=== PATIENT | female | born 1960 | race African-American/Black ===

== ENCOUNTER 2019-11-13 08:15 | Emergency (ER) | payer OTHER ==
[2019-11-13 08:20] VITALS: BP 141/70; PULSE 82; TEMP 98.1; BMI 27.2
[2019-11-13] MEDS ORDERED: DIPHTH,PERTUSS(ACELL),TET 0.5 ML DISP.SYRIN IM ONE ×2 (08:45→08:47)
--- NOTE | 2019-11-13 08:51 | PDOC ---
History of Present Illness - General Chief Complaint: Laceration Stated Complaint: RT HAND LACERATION (FINGER) Time Seen by Provider: 11/13/19 08:33 History Source: Patient Exam Limitations: No Limitations - History of Present Illness Initial Comments: 11/13/19 08:46 Patient is a 59-year-old female with a history of stage IV colon CA who presents to the ED with a laceration to her right thumb. She states that she was reaching into the drill for the junction maker and sliced her finger. She was looking to pill potatoes and reached in and accidentally cut herself. She denie s any fevers or chills. She is unsure of her last tetanus booster. She bandaged her finger several times but it continued to bleed so she came to the ED for evaluation. She states the injury happened before 7 AM. She denies any allergies to medications. Past History - Medical History Allergies/Adverse Reactions: Allergies Allergy/AdvReac Type Severity Reaction Status Date / Time No Known Allergies Allergy Verified 11/13/19 08:17 Home Medications: Ambulatory Orders Escitalopram Oxalate [Lexapro -] 10 mg PO DAILY 12/14/12 Lamotrigine [Lamictal] 150 mg PO TID #21 tablet 05/08/13 Pramipexole Di-HCl [Mirapex] 0.25 mg PO DAILY 02/05/14 Protriptyline HCl 5 mg PO DAILY 02/05/14 Escitalopram Oxalate [Lexapro -] 20 mg PO DAILY #7 tablet 08/24/14 Lamotrigine [Lamictal] 150 mg PO DAILY #7 tablet 08/24/14 Cancer: Yes (COLON STAGE 4) COPD: No Hypercholesterolemia: Yes Psychiatric Problems: Yes (DEPRESSION) - Surgical History Abdominal Surgery: Yes GI Surgery: Yes (TUMOR REMOVAL) - Immunization History Immunization Up to Date: Yes - Psycho-Social/Smoking History Smoking Status: Yes Smoking History: Never smoked Number of Cigarettes Smoked Daily: 0 If you are a former smoker, when did you quit?: 10 years ago - Substance Abuse Hx (Audit-C & DAST Scrn) How often the patient has a drink containing alcohol: Never Score: In Men: 4 or > Positive; In Women: 3 or > Positive: 0 Screen Result (Pos requires Nsg. Audit-10AR): Negative In the last yr the pt used illegal drug/Rx for NonMed reason: No Score: Yes response is considered Positive: 0 Screen Result (Positive result requires Nsg. DAST-10): Negative Review of Systems - Review of Systems Comments:: 11/13/19 08:48 - Review of Systems Able to Perform ROS?: Yes Constitutional: No: Fever, Chills, Loss of Appetite, Night Sweats, Weakness Respiratory: No: Cough, Shortness of Breath, Wheezing, Sputum Production Cardiac (ROS): No: Chest Pain, Chest Tightness, Palpitations, Irregular Heart Beat, Edema ABD/GI: No: Nausea, Vomiting, Abdominal Pain, Diarrhea Musculoskeletal: No: Muscle Pain, Back Pain, Joint Pain, Muscle Weakness, Neck Pain Integumentary: No: Lesions, Rash; positive: Right thumb laceration Neurological: No: Headache, Numbness, Tingling, Weakness, Speech Difficulties *Physical Exam - Vital Signs Last Vital Signs Temp Pulse Resp BP Pulse Ox 98.1 F 82 20 141/70 100 11/13/19 08:17 11/13/19 08:17 11/13/19 08:17 11/13/19 08:17 11/13/19 08:17 - Physical Exam 11/13/19 08:49 - Physical Exam General Appearance: Nourished, Appropriately Dressed, No Distress Neck: Supple, No Lymphadenopathy (R), No Lymphadenopathy (L), No Rigidity, No Decreased range of motion Respiratory/Chest: Lungs Clear, Normal Breath Sounds. No Respiratory Distress, No Accessory Muscle Use Cardiovascular: Regular Rhythm, Regular Rate, S1, S2 Musculoskeletal: Normal Inspection. No Decreased Range of Motion Extremity: Normal Capillary Refill, Normal Inspection Integumentary: Normal Color, Dry. No Rash; right thumb with a flap laceration appreciated to the pad of the finger. The laceration does not open with pulling on the skin and the skin is partially intact. There is no active bleeding appreciated. Sensation intact to the distal tip of the finger. Brisk capillary refill distally. 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 Plan: -Wound repaired with Dermabond -Patient given wound care instructions -Boostrix given in the ED -Patient understands and agrees with this treatment plan and she is stable for discharge Discharge - Discharge Information Problems reviewed: Yes Clinical Impression/Diagnosis: Laceration of right thumb Qualifiers: Encounter type: initial encounter Damage to nail status: without damage Foreign body presence: without foreign body Qualified Code(s): S61.011A - Laceration without foreign body of right thumb without damage to nail, initial encounter Condition: Stable Disposition: HOME - Follow up/Referral Referrals: Lizzy Spear [Primary Care Provider] - 2 Days - Patient Discharge Instructions Patient Printed Discharge Instructions: DI for Laceration Repair-Skin Glue Additional Instructions: Keep the thumb wound clean and dry. Do not soak the wound as this will cause the glue to fall off. Do not wet the wound until this evening. You can shower normally starting this evening. Be sure to not pick at the glue as this will cause the wound to open. The glue should fall off within the next 1 to 2 weeks. After 2 weeks if there is still glue remaining, you can gently rub with bacitracin or Vaseline and a Q-tip to help the glue come off gently. Follow-up with your primary care doctor within 1 to 2 days for repeat evaluation. Return to the emergency department for increased bleeding, increased pain, redness around the wound, pus from the wound or any other worsening symptoms. - Post Discharge Activity Work/Back to School Note: Back to Work
== END 2019-11-13 08:54 | disposition home or self-care (01) ==
LOC: JERFT 08:15
PROC: 0HQFXZZ Repair Right Hand Skin, External Approach (ICD-10-PCS; principal; 2019-11-13)
PROC: 3E0234Z Introduction of Serum, Toxoid and Vaccine into Muscle, Percutaneous Approach (ICD-10-PCS; 2019-11-13)
DX: S61.001A Unspecified open wound of right thumb without damage to nail, initial encounter (principal)
CPT/HCPCS: 90715; 99284-25